=== PATIENT | male | born 1980 | race Caucasian/White ===

== ENCOUNTER 2016-07-08 12:50 | Emergency (ER) | payer BC, OTHER ==
[2016-07-08 13:01] VITALS: BP 115/67
--- NOTE | 2016-07-11 17:49 | UC ---
Natividad Cody Auryana, scribed for Aly Thomas MD on 07/08/16 at 1307 . Abdominal Pain Male HPI - HPI Summary HPI Summary: 35 year old male presents to with diarrhea starting last night. He reports that he has had fecal incontinence while sleeping and states that he has gone 4- 5 this morning. He characterizes it as watery with some solid brown stool. He also had chills (last night) and lower abdominal discomfort but denies any fevers. Patients reports that he recently returned from [facility] few days ago and states that the friends he was visiting also had similar symptoms. PMHx includes right inguinal hernia repair. - History of Current Complaint Stated Complaint: ABDOMINAL PAIN Time Seen by Provider: 07/08/16 13:01 Hx Obtained From: Patient Onset/Duration: Gradual Onset, Lasting Days - few days ago, Still Present Timing: Constant Severity Initially: Mild Severity Currently: Mild Location: Other - lower abdominal discomfort Radiates: No Associated Signs And Symptoms: Positive: Diarrhea - and fecal incontinence, Other - chills last night. Negative: Fever - Allergies/Home Medications Allergies/Adverse Reactions: Allergies Allergy/AdvReac Type Severity Reaction Status Date / Time No Known Allergies Allergy Verified 01/25/14 14:37 PMH/Surg Hx/FS Hx/Imm Hx Respiratory History Of: Reports: Asthma Other History Of: Hepatitis B - Surgical History Surgical History: Yes Surgery Procedure, Year, and Place: left inguinal Hernia surgery 2005; Right inguinal hernia repair 2013 - Family History Known Family History: Negative: Blood Disorder - Social History Occupation: Employed Full-time - [employer] Lives: With Family - Alcohol Use: Weekly Alcohol Amount: 5-8 liquor drinks 3-4x's/week Substance Use Type: None Smoking Status (MU): Never Smoked Tobacco Review of Systems Constitutional: Negative Skin: Negative Eyes: Negative ENT: Negative Respiratory: Negative Gastrointestinal: Abdominal Pain - lower abd discomfort, Diarrhea Genitourinary: Negative Motor: Negative Neurovascular: Negative Musculoskeletal: Negative Neurological: Negative Psychological: Negative All Other Systems Reviewed And Are Negative: Yes Physical Exam Triage Information Reviewed: Yes Appearance: No Pain Distress, Well-Nourished Vital Signs: Initial Vital Signs Temp 98.4 F 07/08/16 12:55 Pulse 93 07/08/16 12:55 Resp 17 07/08/16 12:55 BP 115/67 07/08/16 12:55 Pulse Ox 96 07/08/16 12:55 Vital Signs Reviewed: Yes Eyes: Positive: Conjunctiva Clear Neck: Positive: Supple Respiratory: Positive: Lungs clear Cardiovascular: Positive: RRR Abdomen Description: Positive: Nontender, Soft, Other: Bowel Sounds: Positive: Present Neurological: Positive: Alert Psychological: Positive: Age Appropriate Behavior Abd Pain Male Course/Dx - Differential Dx/Clinical Impression Provider Diagnoses: TRAVELERS DIARRHEA Discharge - Discharge Plan Condition: Stable Disposition: HOME Prescriptions: Ciprofloxacin TAB* [Cipro 500 MG TAB*] 500 mg PO BID #6 tab Patient Education Materials: Traveler's Diarrhea (ED) Referrals: Alok Morrison MD [Primary Care Provider] - Additional Instructions: FOLLOW UP WITH YOUR DOCTOR. GO THE EMERGENCY DEPARTMENT WITH ANY WORSENING OF YOUR CONDITION OR QUESTIONS OR CONCERNS. The documentation as recorded by the Natividad garrett Auryana accurately reflects the service I personally performed and the decisions made by me, Aly Thomas MD.
== END 2016-07-08 13:56 | disposition home or self-care (01) ==
LOC: UCEAST 12:50
DX: R19.7 Diarrhea, unspecified (principal); R10.30 Lower abdominal pain, unspecified; J45.909 Unspecified asthma, uncomplicated; Z86.19 Personal history of other infectious and parasitic diseases
CPT/HCPCS: 99212; G0463